=== PATIENT | female | born 1975 | race Asian ===

== ENCOUNTER 2022-03-16 19:41 | Emergency (ER) | payer OTHER ==
[~2022-03-16] VITALS: Ht 157.5 cm; Wt 68.2 kg
[2022-03-16] MEDS ORDERED: ATOR40TA28 PO (19:55)
[2022-03-16] MEDS ORDERED: LOSA-382 PO (19:55)
[2022-03-16] MEDS ORDERED: METF-1211 PO (19:55)
[2022-03-16] MEDS ORDERED: IBUPROFEN 600 MG TABLET PO ONE (21:00)
[2022-03-16] MEDS ORDERED: ACETAMINOPHEN/CODEINE 300-30 MG TABLET PO ONE (21:00)
[2022-03-16] MEDS ORDERED: ACET-2080 PO (21:01)
[2022-03-16] MEDS ORDERED: IBUP-1554 PO (21:13)
[2022-03-16 21:26] VITALS: BP 128/81
== END 2022-03-16 21:32 | disposition home or self-care (01) ==
LOC: EMS 19:41
DX: S63.91XA Sprain of unspecified part of right wrist and hand, initial encounter (principal); E11.9 Type 2 diabetes mellitus without complications; E78.00 Pure hypercholesterolemia, unspecified; I10 Essential (primary) hypertension; X58.XXXA Exposure to other specified factors, initial encounter; Y93.89 Activity, other specified; Y92.89 Other specified places as the place of occurrence of the external cause; Y99.8 Other external cause status
CPT/HCPCS: 29240; 99283